=== PATIENT | female | born 1975 | race Caucasian/White ===

== ENCOUNTER 2021-01-14 12:35 | Day surgery (SDC) | payer OTHER ==
[2021-01-14] MEDS ORDERED: LIDOCAINE HCL 2% 100 MG/5 ML IJ ONE (12:36)
[2021-01-14] MEDS ORDERED: Depo-Medrol 40 MG/ML IM ONE (12:36)
[2021-01-14] MEDS ORDERED: DIPRIVAN 200 MG/20 ML IV ONE (14:20)
--- NOTE | 2021-01-14 16:12 | XRAY ---
13 seconds fluoroscopy time in surgery for bilateral L4-S1 MBB.
[2021-01-14] MEDS ORDERED: Lactated Ringers 1,000 ML IV ONE (16:41)
--- NOTE | 2021-01-15 22:36 | XRAY ---
Indication: Bilateral L4-S1 MBB. Intraoperative fluoroscopy was provided for 13 seconds. A single digital spot image submitted for interpretation demonstrates posterior needle tips projected over the expected course of the left and right L4-S1 nerve roots. Correlate with intraoperative findings/report.
== END 2021-01-14 14:32 | disposition home or self-care (01) ==
LOC: SDC-PAIN 12:35
PROVIDERS: ATTEND Psychiatry & Neurology Pain Medicine
DX: M47.816 Spondylosis without myelopathy or radiculopathy, lumbar region (principal); J44.9 Chronic obstructive pulmonary disease, unspecified; G62.9 Polyneuropathy, unspecified; D89.89 Other specified disorders involving the immune mechanism, not elsewhere classified; I10 Essential (primary) hypertension; K21.9 Gastro-esophageal reflux disease without esophagitis; F41.8 Other specified anxiety disorders; M41.9 Scoliosis, unspecified; Z79.899 Other long term (current) drug therapy
CPT/HCPCS: 64493; 64494; 72020; 77002; 84703; J1030; J2704